=== PATIENT | male | born 1945 | race Caucasian/White ===

== ENCOUNTER 2022-08-28 15:15 | Outpatient (REF) | payer OTHER, SELFPAY ==
[2022-08-28 16:12] LABS: Appearance Urine Clear (Clear); Bilirubin Urine Negative (Negative); Blood Urine Negative (Negative); Color Urine Yellow (Yellow); Glucose Urine 2+ (Negative); Ketones Urine Negative (Negative); Leukocyte Esterase Urine Negative (Negative); Nitrite Urine Negative (Negative); Protein Urine 1+ (Negative); Specific Gravity Urine 1.015 (1.000-1.030); Urobilinogen Urine 0.2 (0.2-1.0)
[2022-08-28 16:25] LABS: RBC Urine 0-2 (0-2); WBC Urine 0-2 (0-5)
[2022-08-28 16:31] LABS: Albumin* 4.2 g/dL (3.3-5.0); Chloride* 102 mmol/L (96-114); Potassium* 5.1 mmol/L (3.6-5.1); Sodium* 138 mmol/L (135-149)
[2022-08-28 16:33] LABS: Bilirubin Total* 0.6 mg/dL (0.1-1.5); Carbon Dioxide* 22 mmol/L (20-32); Creatinine* 2.1 mg/dL (0.5-1.5); Estimated Glomerular Filt Rate 32 ml/min
[2022-08-28 16:34] LABS: Alanine Aminotransferase* 37 U/L (4-50); Alkaline Phosphatase* 91 U/L (40-150); Aspartate Amino Transferase* 30 U/L (12-35); Blood Urea Nitrogen* 50 mg/dL (7-30); Glucose* 84 mg/dL (60-115); Total Protein* 7.1 g/dL (6.0-8.3)
== END 2022-08-28 15:16 | disposition home or self-care (01) ==
LOC: NPINS 15:15
PROVIDERS: PCP Chiropractor; Visit Provider Chiropractor
DX: I25.10 Atherosclerotic heart disease of native coronary artery without angina pectoris (principal); E11.9 Type 2 diabetes mellitus without complications
CPT/HCPCS: 80053; 81003; 81015; 93306; Q9957